=== PATIENT | female | born 1985 | race Two or more races ===

== ENCOUNTER 2017-07-15 22:46 | Emergency (ER) | payer OTHER ==
--- NOTE | 2017-07-15 22:55 | EDPHY ---
H & P HPI/ROS: HPI CHIEF COMPLAINT: Right foot and right ankle pain. HISTORY OF PRESENT ILLNESS: This patient very pleasant 32-year-old female, she is otherwise healthy without any significant medical history does not take any daily medications she presents emergency room with right foot right ankle pain. Patient was at [facility] in [facility] over 12 hr ago she was running to catch her connecting flight and rolled her right ankle right foot she now has ecchymosis and swelling and pain. Declined pain medicine here in emergency room. She arrived to [facility] at 7:00 p.m. And then came here to the emergency room for evaluation of her right ankle right foot pain. She is able to bear weight. Pain is 4/10. Declined any medicine here in emergency room. Past Medical History: Denies significant medical history Past Surgical History: Denies significant surgical history Social History: Denies drugs alcohol tobacco products. Family History: Noncontributory ROS REVIEW OF SYSTEMS: A comprehensive 10 point review of systems is otherwise negative aside from elements mentioned in the history of present illness. Exam Constitutional appears well nontoxic triage nursing summary reviewed, vital signs reviewed, awake/alert. Eyes normal conjunctivae and sclera, EOMI, PERRLA. HENT normal inspection, atraumatic, moist mucus membranes, no epistaxis, neck supple/ no meningismus, no raccoon eyes. Respiratory clear to auscultation bilaterally, normal breath sounds, no respiratory distress, no wheezing. Cardiovascular rate normal, regular rhythm, no murmur, no edema, distal pulses normal. Gastrointestinal soft, non-tender, no rebound, no guarding, normal bowel sounds, no distension, no pulsatile mass. Genitourinary no CVA tenderness. Musculoskeletal right lower extremity: Good distal pulse. Good cap refill. Ecchymosis and swelling to the right lateral malleolus, and right 4th and 5th metatarsal present. No crepitus. Compartments are soft. no midline vertebral tenderness, full range of motion, no calf swelling, no tenderness of extremities , no meningismus, good pulses, neurovascularly intact. Skin pink, warm, & dry, no rash, skin atraumatic. Neurologic awake, alert and oriented x 3, AAOx3, moves all 4 extremities equally, motor intact, sensory intact, CN II-XII intact, normal cerebellar, normal vision, normal speech. Psychiatric normal mood/affect. Heme/Lymph/Immune no lymphadenopathy. Differential Diagnosis: Includes but is not limited to in a particular order right foot contusion right ankle sprain, right ankle contusion, metatarsal fracture Medical Decision Making: Plan for this patient x-ray right foot, right ankle. Ice pack. Declined pain medicine. Re-evaluate. Re-evaluation: X-ray reviewed of the right foot this shows a Trivedi fracture. Base of 5th metatarsal. This patient be need to be splinted and crutches. Follow up with Podiatry. Madison for pain control. This plan will be a short-leg posterior with stirrup. Source: Patient Constitutional: Initial Vital Signs Temperature (C) 36.7 C 07/15/17 22:50 Heart Rate 119 H 07/15/17 22:50 Respiratory Rate 16 07/15/17 22:50 Blood Pressure 115/79 07/15/17 22:50 O2 Sat (%) 97 07/15/17 22:50 O2 Delivery Mode Room Air Allergies/Adverse Reactions: No Known Allergies Allergy (Unverified 07/15/17 22:56) Home Medications: Medication Instructions Recorded Hydrocodone/APAP 5325 [Madison 1 - 2 tab PO Q4H PRN #20 tab 07/16/17 5/325] Medical Decision Making - Diagnostics Imaging Results: Imaging Impressions Ankle X-Ray 07/15/17 22:55 Impression: 1. Right fifth metatarsal base fracture. 2. No evidence of right ankle fracture. Foot X-Ray 07/15/17 23:11 Impression: Oblique intra-articular acute fracture of the base of the right fifth metatarsal. Departure - Departure Disposition: Home, Routine, Self-Care Clinical Impression: Foot pain, right Contusion, foot Qualifiers: Encounter type: initial encounter Laterality: right Qualified Code(s): S90.31XA - Contusion of right foot, initial encounter Trivedi fracture Qualifiers: Encounter type: initial encounter Fracture type: closed Laterality: right Qualified Code(s): S99.191A - Other physeal fracture of right metatarsal, initial encounter for closed fracture Condition: Good Instructions: Contusion in Adults (ED) Additional Instructions: 1. Ice her foot and ankle. 2. Keep it elevated. 3. Stay in her splint 4. Use crutches to bear weight do not ambulate on it. 5. Madison for pain control. 5. Follow up with Podiatry. Referrals: Cuba James DPM [Doctor of Podiatric Medicine] - As per Instructions Prescriptions: Hydrocodone/APAP 5/325 [Madison 5/325] 1 - 2 tab PO Q4H PRN #20 tab PRN Reason: Pain, Moderate
[2017-07-15 22:56] VITALS: BP 115/79; PULSE 119; RESP 16; TEMP 98.1; O2SAT 97
== END 2017-07-16 00:54 | disposition home or self-care (01) ==
DX: S99.191A Other physeal fracture of right metatarsal, initial encounter for closed fracture (principal); S90.31XA Contusion of right foot, initial encounter; X58.XXXA Exposure to other specified factors, initial encounter; Y92.520 Airport as the place of occurrence of the external cause; Y99.8 Other external cause status; Y93.02 Activity, running

== ENCOUNTER 2018-05-13 09:28 | Inpatient (IN) | payer OTHER ==
[2018-05-13] MEDS ORDERED: ceFAZolin 2 GM/DEXTROSE 100 ML IV ONE (10:24)
[2018-05-13] MEDS ORDERED: LR 500 ML IV ONE (10:24)
[2018-05-13] MEDS ORDERED: LR 1,000 ML IV SCH (10:30)
[2018-05-13] MEDS ORDERED: morphINE PF 10 MG/10 ML INJ IT ONE (10:45)
[2018-05-13 10:49] LABS: PLATELET COUNT 228 10^3/uL (150-400)
[2018-05-13] MEDS ORDERED: PHENYLEPHRINE HCL 100 MCG/ML SYR IVP PRN (11:04)
[2018-05-13] MEDS ORDERED: CITRIC ACID/SODIUM CITRATE 30 ML UDCUP PO ONE (11:04)
[2018-05-13] MEDS ORDERED: fentaNYL 100 MCG/2 ML INJ IVP PRN (11:04)
[2018-05-13] MEDS ORDERED: METOCLOPRAMIDE 10 MG/2 ML VIAL IVP PRN (11:04)
[2018-05-13] MEDS ORDERED: PROMETHAZINE HCL 25 MG/ML INJ IVP PRN (11:04)
[2018-05-13] MEDS ORDERED: HYDROmorphONE/DILAUDID 2 MG/ML INJ IVP PRN (11:04)
[2018-05-13] MEDS ORDERED: ONDANSETRON 4 MG/2 ML VIAL IVP PRN (11:04)
[2018-05-13] MEDS ORDERED: NALOXONE HCL 0.4 MG/ML INJ IVP PRN (11:04)
[2018-05-13] MEDS ORDERED: CITRIC ACID/SODIUM CITRATE 30 ML UDCUP ONE (11:05)
--- NOTE | 2018-05-13 11:07 | PDANEPAE ---
ANE Past Medical History - Cardiovascular History Hx Hypertension: No - Pulmonary History Hx Oxygen in Use at Home: No Hx Sleep Apnea: No - Endocrine History Hx Diabetes: Yes Endocrine History Comment: Gestational DM - Renal History Hx Renal Disorders: No - Liver History Hx Hepatic Disorders: No - Neurological & Psychiatric Hx Hx Neurological and Psychiatric Disorders: No - Chronic Pain History Chronic Pain: No ANE Review of Systems Review of Systems: ANE Patient History - Allergies Allergies/Adverse Reactions: No Known Allergies Allergy (Unverified 07/15/17 22:56) - Smoking Hx Smoking Status: Never smoked ANE Labs/Vital Signs - Labs Result Diagrams: 05/13/18 10:40 - Vital Signs Height: 158.75 cm Weight: 61.689 kg ANE Physical Exam - Airway Neck exam: FROM Mallampati Score: Class 1 Mouth exam: normal dental/mouth exam - Pulmonary Pulmonary: no respiratory distress, no rales or rhonchi, clear to auscultation - Cardiovascular Cardiovascular: no murmur, rub, or gallop, tachycardia - ASA Status ASA Status: II, E ANE Anesthesia Plan Anesthesia Plan: spinal
[2018-05-13] MEDS ORDERED: OXYTOCIN 100 UNITS/10 ML VIAL ONE (11:10)
--- NOTE | 2018-05-13 11:23 | GHP ---
DATE OF ADMISSION: 05/13/2018 PREOPERATIVE DIAGNOSIS: 1. Intrauterine at 38 and 3/7 weeks gestation. 2. History of previous low transverse section. Declines trial of labor. 3. Early labor with contractions and bleeding. 4. Multiple nuchal cords. HISTORY OF PRESENT ILLNESS: The patient is a 33-year-old 2, para 1-0-0-1, whose estimated da te of confinement is 05/27/2018, dated with a last menstrual period of 08/19/2017 consistent with an 8-week ultrasound. The patient has a history of a previous low transverse section done in [facility]. She is scheduled for repeat section next week, however, last night she began having c ontractions increasing in frequency and intensity, and having some vaginal bleeding, so she presented to Labor and Delivery. The patient has had increased surveillance during the because of g estational diabetes and most recently a multiple nuchal cord noted on her growth ultrasound. She has declined a trial of labor. The patient initiated care in the 1st trimester at [facility] and t ramírezsferred to [facility] [place] at 28 weeks' gestation. She was diagnosed with gestational diabet es and has had good sugar control throughout her . MEDICAL HISTORY: Significant for gastroesophageal reflux disease, pre diabetes. MEDICATIONS: vitamins, DHA and iron. SURGICAL HISTORY: section in [facility] in 2009. ALLERGIES: No known drug allergies. SOCIAL HISTORY: Patient is . She denies tobacco, alcohol, or drug use. She is a [facility] mom. FAMILY MEDICAL HISTORY: Noncontributory. 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 Periods every 28 days, lasting 5 days. She is a 2, para 1 -0-0-1. She had a primary section in 12/2009 in [facility] at 40 weeks, for non-reassuring heart tones. Current has been complicated by gestational diabetes and most recent diagnos is of multiple nuchal cords on the growth ultrasound. The patient denies any history of abnormal Pap smears or sexually transmitted diseases. REVIEW OF SYSTEMS: 10-point review of systems is negative with the exception of the above-mentioned pertinent positives. Positive movement. No loss of fluid. No vaginal bleeding. Denies any h eadache or changes in vision. PHYSICAL EXAMINATION: VITAL SIGNS: The patient's vital signs are stable. GENERAL APPEARANCE: Aler t and oriented x3. PSYCH: Appropriate affect. MUSCULOSKELETAL: Grossly intact. NEURO: Grossly i ntact. NECK: Neck is mobile and supple. HEART: Regular, regular. LUNGS: Clear to auscultation b ilaterally. ABDOMEN: Gravid, nondistended, nontender. EXTREMITIES: No calf tenderness or edema. PELVIC EXAM: The patient did not tolerate pelvic exam. Infant in the vertex presentation, and there was a moderate amount of blood on my glove. heart tracing is category 1 with positive accelerations, no decelerations, and she is having ir regular contractions. LABORATORY DATA: Her GBS is negative. Remainder of labs are not available at this time. ASSESSMENT AND PLAN: A 33-year-old 2, para 1-0-0-1 at 38 and 3/7 weeks' gestation, with a hi story of a previous low transverse section. She has presented in early labor with vaginal b leeding and having some discomfort. She will proceed with a repeat low transverse section. Risks and benefits have been extensi vely reviewed with the patient. The patient has been properly consented. /[id number]/MODL
[2018-05-13] MEDS ORDERED: ePHEDrine SULFATE 25 MG/5 ML SYR ONE (11:28)
[2018-05-13] MEDS ORDERED: PHENYLEPHRINE 10 MG/ML SDV ONE (11:28)
[2018-05-13] MEDS ORDERED: LR 500 ML IV SCH (11:30)
[2018-05-13] MEDS ORDERED: oxyCODONE IR 5 MG TAB PO PRN (12:16)
[2018-05-13] MEDS ORDERED: POLYETHYLENE GLYCOL 3350 17 GM PKT PO PRN (12:16)
[2018-05-13] MEDS ORDERED: LACTULOSE 20 GM/30 ML UDCUP PO PRN (12:16)
[2018-05-13] MEDS ORDERED: MAGNESIUM HYDROXIDE 30 ML UDCUP PO PRN (12:16)
[2018-05-13] MEDS ORDERED: DOCUSATE SODIUM 100 MG CAP PO PRN (12:16)
[2018-05-13] MEDS ORDERED: BISACODYL 10 MG SUPP PR PRN (12:16)
[2018-05-13] MEDS ORDERED: METOCLOPRAMIDE 10 MG/2 ML VIAL ONE (12:18)
[2018-05-13] MEDS ORDERED: ONDANSETRON 4 MG/2 ML VIAL ONE (12:18)
--- NOTE | 2018-05-13 12:21 | OBDEL ---
Info Type: Repeat Presentation at Delivery: Vertex L&D Analgesia/Anesthesia Type: Spinal GBS+: No Indications for Delivery: Spontaneous Labor Vaginal Delivery - Labor and Delivery Onset of Contractions Date: 05/13/18 Onset of Contractions Time: 01:00 Operative Report - Delivery Pre-op Diagnoses: IUP at 38 3/7 weeks, prior c section delcines trial of labor, early labor, gestational diabetes, multiple nuchal cords on ultrasound Post-op Diagnoses: same as pre op History of Prior Section: Yes Number of Prior Sections: 1 Nulliparous Prior to Delivery: No Indications for Prior Section: Non-reas. Status Indications for Current Section: Elective/Repeat Procedure: Unscheduled, Low Transverse Surgeon: Ailyn Plascencia Utility Division Project Manager: Sarah Zhao Anesthesiologist: Pavan Lozano Complications: Nucal Cord (x3), Other (Specify) (head not engaged needed vacuum to deliver) EBL: 600 Data [place]KE: 05/24/18 Gestational Age: 38 week(s) and 3 day(s) Carrillo Delivery Date: 05/13/18 Delivery Time: 11:43 Sex of Infant: Female Score (1 Min): 4 Score (5 Min): 8 ICD10 Worksheet Patient Problems: Problems Problem Status Onset delivery delivered Acute
--- NOTE | 2018-05-13 12:48 | GOP ---
DATE OF OPERATION: 05/13/2018 SURGEON: Ailyn Plascencia DO ST[place] POOL SUPERVISOR: Sarah Zhao. ANESTHESIA: Spinal. ANESTHESIOLOGIST: Pavan Lozano. PREOPERATIVE DIAGNOSIS: 1. Intrauterine at 38 and 3/7 weeks' gestation. 2. History of previous low transverse section. 3. Declines trial of labor. 4. Early labor. 5. Gestational diabetes A1. 6. Multiple nuchal cords on ultrasound. POSTOPERATIVE DIAGNOSIS: 1. Intrauterine at 38 and 3/7 weeks' gestation. 2. History of previous low transverse section. 3. Declines trial of labor. 4. Early labor. 5. Gestational diabetes 1. 6. Multiple nuchal cords on ultrasound. PROCEDURE PERFORMED: Repeat low transverse section. FINDINGS: 1. Viable female in the cephalic presentation, not well engaged in the pelvis with nuchal cor d x3. Apgars were 4 and 8. 2. Intact placenta with 3-vessel cord. 3. Normal ovaries, uterus, and tubes. ESTIMATED BLOOD LOSS: 600 cc. INDICATIONS: The patient is a 33-year-old, 2, para 1,0,0,1, who is 38 and 3/7 weeks gestatio n. She has a history of previous low transverse section and has declined a trial of labor. Patient began having contractions increasing in frequency and intensity last night and she had a sma ll amount of vaginal bleeding. She arrived to Labor and Delivery and found to be 2 cm dilated and in early labor. The patient declined trial of labor and decided to proceed with a repeat low transvers e section. Risks and benefits were reviewed with the patient and the patient was properly c onsented. DESCRIPTION OF PROCEDURE: Patient was taken to the operating room with intravenous fluids in place. She was given 2 g of Ancef and placed on the operating room table where spinal anesthesia was obtain ed. She was then repositioned in the dorsal supine position with a leftward tilt. A Foreman catheter was placed. Venodynes were placed on her lower extremities. She was then prepped and draped in the normal sterile fashion. Anesthesia was assessed and found to be adequate. A Pfannenstiel skin incis ion was then made 2 fingerbreadths above the pubic bone. The previous -section scar was then removed. The incision was then carried through the underlying layer of fascia. The fascia was then nicked in the midline and the fascial incision was extended laterally. The superior aspect of the f ascial incision was then grasped with Kochers, tented up, and the underlying rectus muscle dissected off bluntly with the Bovie. Attention was then turned to the inferior aspect of the fascial incision , which in a similar fashion was grasped with a Papo, tented up, and the underlying rectus muscle d issected off bluntly with the Bovie. The rectus muscle was then in the midline. The perit oneum was identified, tented up, and entered sharply with Metzenbaum scissors. The incision was exte nded superiorly and inferiorly with excellent visualization of the bladder. The bladder blade was th en inserted. The vesicouterine peritoneum was identified, tented up, and entered sharply with the Me tzenbaum scissors. The incision was extended laterally and the bladder flap was created digitally. The lower uterine segment was noted to be extremely thin with a small window. The uterine incision w as then made in a low transverse fashion and digitally extended laterally. The membranes were artifi cially ruptured and a large amount of clear fluid was noted. The 's head was noted to be not a t all engaged within the pelvis. After expressing most of the amniotic fluid and trying to get the b renee through the uterine incision and not being successful, a vacuum was applied to the infant's head and the infant's head was delivered without difficulty through the incision. The vacuum was immediat yarelis released. Nuchal cord x3 was reduced at the incision. The remainder of the was delivered without difficulty. Delayed cord clamping was performed for 1 minute. The cord was then clamped x2 and cut and the was handed off to the waiting nurse practitioner. Intact placenta w ith 3-vessel cord delivered without difficulty. The uterus was then exteriorized and cleared of all clots and debris and wrapped in a moist laparotomy sponge. The bladder blade was then reinserted. T he uterine incision was closed with an 0 Vicryl in a running locked fashion. A 2nd 0 Vicryl stitch w as used to imbricate the uterine incision. Hemostasis was assured. Ovaries, uterus, and tubes were unremarkable. The uterus was then returned to the patient's abdomen. The gutters were cleared of al l clots and debris. The hysterotomy remained hemostatic. Peritoneum was reapproximated with 3-0 Armando ryl in a running fashion. Rectus muscle was reapproximated with 2-0 Vicryl in a running fashion. Fa scia was closed with 0 Vicryl in a running fashion. Calvin's tissue was reapproximated with 3-0 Vicr yl in a running fashion. Subcuticular tissue was reapproximated with 3-0 Vicryl in a running fashion . The sponge, lap, and needle count were correct x2. The patient was transferred to the recovery [facility] in stable condition. /[id number]/MODL
[2018-05-13] MEDS: KETOROLAC 30 MG/1 ML SDV IVP SCH ×2 (15:54→21:56)
--- NOTE | 2018-05-13 16:07 | POSTANESTH ---
Post Anesthetic Evaluation Cardiovascular Status: Normal, Stable Respiratory Status: Normal, Stable Level of Consciousness/Mental Status: Can Participate in Eval Pain Control: Adequate, Prn Tx Ordered Nausea/Vomiting Control: Adequate, Prn Tx Ordered Complications Possibly Related to Anesthesia: None Noted
[2018-05-13] MEDS: IBUPROFEN 600 MG TAB PO SCH ×2 (16:08→22:46)
[2018-05-13] MEDS: ACETAMINOPHEN 325 MG TAB PO SCH ×2 (16:09→21:55)
[2018-05-13] MEDS: SENNOSIDES/DOCUSATE SODIUM TAB PO SCH (21:56)
[2018-05-14] MEDS: ACETAMINOPHEN 325 MG TAB PO SCH ×5 (03:46→21:08)
[2018-05-14] MEDS: IBUPROFEN 600 MG TAB PO SCH ×5 (03:46→21:08)
[2018-05-14] MEDS: KETOROLAC 30 MG/1 ML SDV IVP SCH ×2 (03:47→09:46)
[2018-05-14] MEDS ORDERED: KETOROLAC 30 MG/1 ML SDV IVP ONE (09:45)
[2018-05-14] MEDS: SENNOSIDES/DOCUSATE SODIUM TAB PO SCH ×2 (09:58→21:08)
--- NOTE | 2018-05-14 11:24 | OBPP ---
Progress Note Assessment/Plan: Assessment: 33 y/o POD #1 s/p Rpt LTCS @ 38 weeks with bleeding Plan: D/c sotelo and transition to po pain meds today. support and routine POC. 05/14/18 11:18 Subjective/ Course: 05/14/18 11:15 Pt is doing well this am. She has good pain control with Toradol. She is up in the chair, denies dizziness or light headedness. She is tolerating reg diet and working on breast feeding. Objective: 05/14/18 03:53 Patient ABO/Rh A POSITIVE 05/13/18 10:40 Temp Pulse Resp BP Pulse Ox 36.3 C 86 16 84/54 L 93 05/14/18 10:04 05/14/18 10:04 05/14/18 10:04 05/14/18 10:04 05/14/18 10:04 Uterine Position/Fundal Height: Umbilicus -2 Uterine Tone: Firm Physical Exam - Physical Exam General Appearance: alert, no apparent distress Neck: non-tender, full range of motion, supple Respiratory: chest non-tender, lungs clear, normal breath sounds Cardiac/Chest: regular rate, rhythm Abdomen: normal bowel sounds, incision (c/d/i) Extremities: swelling (no), Gretchen's sign (neg)
--- NOTE | 2018-05-14 14:14 | SOAPPROG ---
RIN Progress Note Assessment/Plan: Assessment: post op day 1 spinal with duramorph patient doing well, pain controlled, no side effects Plan: no additional follow up needed 05/14/18 14:14 05/14/18 14:15 Objective: Vital Signs Temp Pulse Resp BP Pulse Ox 36.3 C 86 16 84/54 L 93 05/14/18 10:04 05/14/18 10:04 05/14/18 10:04 05/14/18 10:04 05/14/18 10:04 Laboratory Results 05/14/18 03:53 05/13/18 05/14/18 05/15/18 05:59 05:59 05:59 Intake Total 275 Output Total 1875 Balance -1600 - Pending Discharge Pending Discharge Within 48 Hours: Yes Pending Discharge Date: 05/16/18 Pending Discharge Time: 11:00 ICD10 Worksheet Patient Problems: Problems Problem Status Onset delivery delivered Acute
[2018-05-14] MEDS: SIMETHICONE 80 MG TAB CHEW PO PRN (15:22)
[2018-05-15] MEDS: IBUPROFEN 600 MG TAB PO SCH ×4 (03:01→21:38)
[2018-05-15] MEDS: ACETAMINOPHEN 325 MG TAB PO SCH ×4 (03:01→21:39)
[2018-05-15] MEDS: SENNOSIDES/DOCUSATE SODIUM TAB PO SCH ×2 (09:10→21:38)
--- NOTE | 2018-05-15 11:47 | OBPP ---
Progress Note Assessment/Plan: Assessment: 33 y/o POD #2 s/p Rpt LTCS @ 38 weeks with bleeding Plan: Continue routine POC and support. D/c home tomorrow. 05/14/18 11:18 05/15/18 11:46 Subjective/ Course: 05/14/18 11:15 Pt is doing well this am. She has good pain control with Toradol. She is up in the chair, denies dizziness or light headedness. She is tolerating reg diet and working on breast feeding. 05/15/18 11:45 Pt is doing well. She has good pain control on po Ibuprofen and Tylenol, hasn' t tried oxy yet. She is ambulating and voiding and had a + BM. She plans to shower today. Baby is doing well, breast feeding. She feels ready to d/c home tomorrow. Objective: 05/14/18 03:53 Patient ABO/Rh A POSITIVE 05/13/18 10:40 Temp Pulse Resp BP Pulse Ox 36.3 C 72 19 96/68 L 95 05/15/18 08:05 05/15/18 08:05 05/15/18 08:05 05/15/18 08:05 05/15/18 08:05 Uterine Position/Fundal Height: Umbilicus -2 Uterine Tone: Firm Physical Exam - Physical Exam General Appearance: alert, no apparent distress Neck: non-tender, full range of motion, supple Respiratory: chest non-tender, lungs clear, normal breath sounds Cardiac/Chest: regular rate, rhythm Abdomen: normal bowel sounds, incision (c/d/i) Extremities: swelling (no), Gretchen's sign (neg)
[2018-05-15] MEDS: SIMETHICONE 80 MG TAB CHEW PO PRN (23:03)
[2018-05-16] MEDS: IBUPROFEN 600 MG TAB PO SCH ×3 (04:27→14:43)
[2018-05-16] MEDS: ACETAMINOPHEN 325 MG TAB PO SCH ×4 (04:27→16:55)
[2018-05-16 08:53] VITALS: BP 113/77
[2018-05-16] MEDS: SENNOSIDES/DOCUSATE SODIUM TAB PO SCH (10:52)
[2018-05-16] MEDS: SIMETHICONE 80 MG TAB CHEW PO PRN ×2 (10:52→15:51)
--- NOTE | 2018-05-16 14:30 | OBPP ---
Progress Note Assessment/Plan: Assessment: POD 3 s/p RCS Plan: D/C home. mylicon for gas pain 05/16/18 14:28 Subjective/ Course: 05/14/18 11:15 Pt is doing well this am. She has good pain control with Toradol. She is up in the chair, denies dizziness or light headedness. She is tolerating reg diet and working on breast feeding. 05/15/18 11:45 Pt is doing well. She has good pain control on po Ibuprofen and Tylenol, hasn' t tried oxy yet. She is ambulating and voiding and had a + BM. She plans to shower today. Baby is doing well, breast feeding. She feels ready to d/c home tomorrow. 05/16/18 14:29 Pt using only ibu/tyl for pain control. Having gas pains - rec mylicon. BF vigorously - very sore and has blister on right nipple. bld is light. urinating fine. amb well and mayi liquids and fruit Objective: 05/14/18 03:53 Patient ABO/Rh A POSITIVE 05/13/18 10:40 Temp Pulse Resp BP Pulse Ox 36.8 C 77 15 113/77 95 05/16/18 08:00 05/16/18 08:00 05/16/18 08:00 05/16/18 08:00 05/16/18 08:00 Uterine Position/Fundal Height: Umbilicus -2 Uterine Tone: Firm Physical Exam - Physical Exam Abdomen: non-tender (approp post op tenderness), soft, incision (CDI), other ( FF at umb -2) Extremities: non-tender, pedal edema (minimal) Skin: normal color, warm/dry Neuro/Psych: alert, normal mood/affect
--- NOTE | 2018-05-16 14:31 | OBGCSDC ---
General Delivery Information - General Info : 2 Para: 2 Abortions: 0 Type: Repeat L&D Analgesia/Anesthesia Type: Spinal Admission Date: 05/13/18 Labs: Patient ABO/Rh A POSITIVE 05/13/18 10:40 Hct 36.2 % (38.0-47.0) L 05/14/18 03:53 - Hospital Course : 05/14/18 11:15 Pt is doing well this am. She has good pain control with Toradol. She is up in the chair, denies dizziness or light headedness. She is tolerating reg diet and working on breast feeding. 05/15/18 11:45 Pt is doing well. She has good pain control on po Ibuprofen and Tylenol, hasn' t tried oxy yet. She is ambulating and voiding and had a + BM. She plans to shower today. Baby is doing well, breast feeding. She feels ready to d/c home tomorrow. 05/16/18 14:29 Pt using only ibu/tyl for pain control. Having gas pains - rec mylicon. BF vigorously - very sore and has blister on right nipple. bld is light. urinating fine. amb well and mayi liquids and fruit - Delivery Providers Surgeon: Ailyn Plascencia Ground Worker: Sarah Zhao Anesthesiologist: Pavan Lozano - Delivery Number of Prior Sections: 1 Indications for Current Section: Elective/Repeat Surgical Procedures: Unscheduled, Low Transverse Intra-op Complications: Nucal Cord (x3), Other (Specify) (head not engaged needed vacuum to deliver) EBL: 600 [place] Data [place]: 05/24/18 Gestational Age: 38 week(s) and 6 day(s) Carrillo Delivery Date: 05/13/18 Delivery Time: 11:43 Sex of Infant: Female [place] Weight (gm): 2844 kg Score (1 Min): 4 Score (5 Min): 8 Discharge Information - Discharge Information Condition: Good Instruction/Follow Up: See Instruction Sheet, Two Weeks, Six Weeks
== END 2018-05-16 17:15 | disposition home or self-care (01) | DRG 788 ==
LOC: OBSVTOIN 09:28 → FLD 09:28 → FOB 15:00
PROVIDERS: ADMIT Obstetrics & Gynecology; ATTEND Obstetrics & Gynecology
PROC: 10D00Z1 Extraction of Products of Conception, Low, Open Approach (ICD-10-PCS; principal; 2018-05-13)
DX: O75.82 Onset (spontaneous) of labor after 37 completed weeks of gestation but before 39 completed weeks gestation, with delivery by (planned) cesarean section (principal); O69.81X0 Labor and delivery complicated by cord around neck, without compression, not applicable or unspecified; O24.410 Gestational diabetes mellitus in pregnancy, diet controlled; O34.211 Maternal care for low transverse scar from previous cesarean delivery; Z3A.38 38 weeks gestation of pregnancy; Z37.0 Single live birth
CPT/HCPCS: J0690; J1885; J2274; J2370; J2405; J2590; J2765